=== PATIENT | female | born 1965 | race Caucasian/White ===

== ENCOUNTER 2024-10-03 00:45 | Emergency (ER) | payer OTHER ==
[~2024-10-03] VITALS: Ht 157.5 cm; Wt 64.9 kg
[~2024-10-03 00:45] MED LIST: MOTRIN IB200 MG PO; NORCO 5-325 TA1 EACH PO
[2024-10-03] MEDS ORDERED: OXYCODONE HCL 5 MG TAB PO ONE (01:00)
[2024-10-03] MEDS ORDERED: OXYCODONE/ACETAMINOPHEN 1 TAB HOME.PACK PO ONE (01:30)
[2024-10-03] MEDS ORDERED: PERCOCET 5-3251 EACH PO (01:32)
[2024-10-03 01:52] VITALS: BP 137/83
[2024-10-05] MEDS ORDERED: CALCIUM500 MG PO (11:59)
[2024-10-05] MEDS ORDERED: VITAMIN D325 MC4 PO (12:00)
== END 2024-10-03 01:52 | disposition home or self-care (01) ==
LOC: ED 00:45
DX: S52.571A Other intraarticular fracture of lower end of right radius, initial encounter for closed fracture (principal); W01.0XXA Fall on same level from slipping, tripping and stumbling without subsequent striking against object, initial encounter
CPT/HCPCS: 73090; 99283; A9270

== ENCOUNTER 2024-10-08 07:46 | Day surgery (SDC) | payer OTHER ==
[~2024-10-08] VITALS: Ht 157.5 cm; Wt 63.0 kg
[~2024-10-08 07:46] MED LIST changes: +CALCIUM500 MG PO; +CEFAZOLIN SODIUM 2 GM/20 ML SYR IV SCH; +IBLOOD GLUCOSE TEST STRIP 1 EA TEST VI PRN; +LACTATED RINGER'S 1,000 ML IV SCH; +LIDOCAINE HCL 1% 5 ML SDV INJ ONE; +PERCOCET 5-3251 EACH PO; +VITAMIN D325 MC4 PO
[2024-10-08] MEDS ORDERED: DEXAMETHASONE SOD PHOS 4 MG/ML VIAL ONE ×2 (07:50→09:38)
[2024-10-08] MEDS ORDERED: KETOROLAC TROMETHAMINE 30 MG/ML VIAL ONE (07:50)
[2024-10-08] MEDS ORDERED: LACTATED RINGER'S 1,000 ML IV ONE (07:50)
[2024-10-08] MEDS ORDERED: propofoL 200 MG/20 ML VIAL ONE (07:50)
[2024-10-08] MEDS ORDERED: FAMOTIDINE 20 MG/ 2 ML VIAL ONE (07:50)
[2024-10-08] MEDS ORDERED: MIDAZOLAM HCL 2 MG/2 ML VIAL ONE ×2 (07:50→09:38)
[2024-10-08] MEDS ORDERED: ondansetron HCL 4 MG/2 ML VIAL ONE (07:50)
[2024-10-08] MEDS ORDERED: METOCLOPRAMIDE HCL 10 MG/2 ML SDV ONE (07:50)
[2024-10-08] MEDS ORDERED: fentaNYL citrate 100 MCG/2 ML VIAL ONE (07:50)
[2024-10-08 08:43] VITALS: BP 146/65
[2024-10-08] MEDS ORDERED: VALACYCLOVIR1000 MG PO (08:48)
[2024-10-08] MEDS ORDERED: SEVOFLURANE 250 ML BTL INH ONE (09:15)
[2024-10-08 09:16] LABS: BASOPHILS 0.8 % (0-2); EOSINOPHILS 1.8 % (0-6); HEMATOCRIT 39.3 % (35.0-50.0); HEMOGLOBIN 13.4 g/dL (12.0-18.0); LYMPHOCYTES 19.2 % (24-44); MCH 30.1 (27-36); MCHC 34.2 g/dl (30-36); MONOCYTES 4.7 % (0-12); NEUTROPHILS 73.5 % (39-80); PLATELET COUNT 281 K/uL (140-440); RBC 4.47 M/ul (4.3-5.7); RDW 15.2 (10.5-15.0)
[2024-10-08] MEDS ORDERED: ondansetron HCL 4 MG/2 ML VIAL IV PRN (09:30)
[2024-10-08] MEDS ORDERED: IBLOOD GLUCOSE TEST STRIP 1 EA TEST VI PRN (09:30)
[2024-10-08] MEDS ORDERED: MORPHINE SULFATE 10 MG/ML VIAL IV PRN (09:30)
[2024-10-08] MEDS ORDERED: METOCLOPRAMIDE HCL 10 MG/2 ML SDV IV PRN (09:30)
[2024-10-08] MEDS ORDERED: droPERidol 5 MG/2 ML VIAL IV PRN (09:30)
[2024-10-08] MEDS ORDERED: NALOXONE HCL 0.4 MG SYR IV PRN (09:30)
[2024-10-08] MEDS ORDERED: fentaNYL citrate 50 MCG/ML SDV IV PRN (09:30)
[2024-10-08] MEDS ORDERED: PROCHLORPERAZINE EDISYLATE 10 MG/2 ML VIAL IV PRN (09:30)
[2024-10-08 09:35] LABS: ALBUMIN 4.1 g/dL (3.4-5.0); ALBUMIN/GLOBULIN RATIO 1.14 (1.1-2.4); ANION GAP 11.8 (7-21); BILIRUBIN, TOTAL 0.6 ng/dL (0.2-1.0); BUN/CREATININE RATIO 23.4 (6.0-28.6); CALCIUM 9.1 mg/dL (8.5-10.1); CREATININE, SERUM 0.94 mg/dL (0.55-1.02); POTASSIUM 3.8 mmol/L (3.5-5.1); PROTEIN, TOTAL 7.7 g/dL (6.4-8.2)
[2024-10-08] MEDS ORDERED: Ropivacaine HCl 0.5% 30 ML VIAL ONE (09:38)
[2024-10-08] MEDS ORDERED: LIDOCAINE HCL 2% 5 ML SDV ONE (09:38)
[2024-10-08] MEDS ORDERED: KETOROLAC TROMETHAMINE 15 MG/ML VIAL IV PRN (11:15)
[2024-10-08] MEDS ORDERED: HYDROCODONE/ACETA 7.5/325 TAB PO PRN (11:15)
[2024-10-08] MEDS ORDERED: DICLOFENAC SODI75 MG PO (11:16)
[2024-10-08] MEDS ORDERED: HYDROCODON-ACE1 EA11 PO (11:16)
--- NOTE | 2024-10-08 11:28 | NUR ---
10/08/24 1128 Neelima Muro PATIENT ROUSES AND PUSHES HER ORAL AIRWAY OUT OF HER MOUTH. IT IS REMOVED. PATIENT RETURNS TO RESTING QUIETLY, WITH HER EYES CLOSED.
[2024-10-08 11:52] VITALS: BP 127/61
--- NOTE | 2024-10-08 12:30 | NUR ---
ANSWERED PT CALL LIGHT D/T PT STATING NEED TO URINE VOID. PT STANDS AT BEDSIDE AND REPORTS NO NAUSEA/DIZZINESS AT THIS TIME. THIS RN STANDBY ASSIST TO RESTROOM W/PT, GAIT IS STEADY. URINE VOID OF 200 ML OF CLEAR/YELLOW URINE AT THIS TIME. PT BACK TO ROOM AND GETTING DRESSED W/ ASSISTANCE. CALL LIGHT WITHIN REACH.
[2024-10-08 12:40] VITALS: BP 118/60
--- NOTE | 2024-10-08 19:20 | EKG ---
[facility] [address] [facility] [place], [place] [address] Signed Normal sinus rhythm Normal ECG No previous ECGs available Confirmed by Layla Harper MD ([id number]) on 10/08/2024 7:20:00 PM Electronically Signed By: LAYLA HARPER MD 10/08/241919 PATIENT NAME: JESSICA REYES Electrocardiogram DATE OF : 61 PHYSICIAN: LAYLA HARPER MD REPORT #: [id number] REPORT IS CONFIDENTIAL AND NOT TO BE RELEASED WITHOUT AUTHORIZATION
[2024-10-08] MEDS ORDERED: DICLOFENAC SOD 75 MG TABEC PO SCH (21:00)
--- NOTE | 2024-10-09 11:39 | OR ---
[facility] [address] [facility] [place], [place] [address] Signed DATE OF OPERATION: 10/08/2024 SURGEON: Aleyda Cramer MD PREOPERATIVE DIAGNOSIS: Displaced right distal radius fracture. POSTOPERATIVE DIAGNOSIS: Displaced right distal radius fracture. PROCEDURE PERFORMED: Closed reduction percutaneous pinning right distal radius. STORE DIRECTOR: Kamryn Goins PA-C. ANESTHESIA: General. BLOOD LOSS: Minimal. TOURNIQUET TIME: Zero. IMPLANTS: Three 1.6 K-wires. BRIEF HISTORY: Jessica is a 58-year-old female, who suffered a ground level fall fracturing her wrist, which was dorsally displaced and angulated. Risks and benefits of operative treatment were discussed with her and she elected to proceed. DESCRIPTION OF PROCEDURE: Once consent was obtained, she was taken to the operating room. After adequate anesthesia, she was placed on the operating room table with a hand table. The arm was prepped and draped in a standard sterile fashion up to a well-padded proximal arm tourniquet. The fracture was closed reduced with excellent results actually. We were able to pass a 1.6 mm K-wire from the radial styloid across the fracture engaging the body of the radius with excellent bone fixation. We then passed another one dorsally Electronically Signed By: ALEYDA CRAMER MD 10/09/24 1139 PATIENT NAME: JESSICA REYES OPERATIVE REPORT DATE OF : 61 REPORT #: [id number] PHYSICIAN: ALEYDA CRAMER MD PCP: SUBHA EARLY PA-C REPORT IS CONFIDENTIAL AND NOT TO BE RELEASED WITHOUT AUTHORIZATION [facility] [address] [place] [address] Signed and the 3rd one in the radial styloid. She had excellent reduction and pin placement on final radiographs. The pins were then bent and cut. The wounds were then dressed with Allevyn dressing, sterile cast padding and a radial gutter splint. She tolerated the procedure well. All sponge, needle, and instrument counts were correct. Aleyad Cramer MD BA/LISEL /[id number] Copies: ~ Electronically Signed By: ALEYDA CRAMER MD 10/09/24 1139 PATIENT NAME: JESSICA REYES OPERATIVE REPORT DATE OF : 61 REPORT #: [id number] PHYSICIAN: ALEYDA CRAMER MD PCP: SUBHA EARLY PA-C REPORT IS CONFIDENTIAL AND NOT TO BE RELEASED WITHOUT AUTHORIZATION
== END 2024-10-08 12:55 | disposition home or self-care (01) ==
LOC: DS 07:46
PROVIDERS: ATTEND Specialist
PROC: 0PSH36Z Reposition Right Radius with Intramedullary Internal Fixation Device, Percutaneous Approach (ICD-10-PCS; principal; 2024-10-08 10:45)
DX: S52.571A Other intraarticular fracture of lower end of right radius, initial encounter for closed fracture (principal); W18.30XA Fall on same level, unspecified, initial encounter
CPT/HCPCS: 01820; 36415; 73100; 80053; 85025; 93005; 93010; J0690; J1100; J1885; J2003; J2250; J2405; J2704; J2765; J2795; J3010; J7121